=== PATIENT | female | born 1950 | race Caucasian/White ===

== ENCOUNTER 2018-06-25 21:00 | Emergency (ER) | payer MEDICARE, OTHER ==
[~2018-06-25] VITALS: Ht 152.4 cm; Wt 56.5 kg
[2018-06-25 21:14] VITALS: BP 118/65
[2018-06-25 21:47] LABS: BASOPHILS % (AUTO) 0 % (0-1); EOSINOPHILS # (AUTO) 0.07 x10^3/uL (0-0.4); EOSINOPHILS % (AUTO) 1 % (1-7); LYMPHOCYTES # (AUTO) 0.95 x10^3/uL (1-3.4); LYMPHOCYTES % (AUTO) 8 % (22-44); MD NO; MEAN CORPUSCULAR HEMOGLOBIN 31.3 pg (27.0-34.8); MEAN CORPUSCULAR HGB CONC 33.8 g/dL (32.4-35.8); MEAN CORPUSCULAR VOLUME 92.4 fL (80-100); MEAN PLATELET VOLUME 7.8 fL (7.4-10.4); MONOCYTES # (AUTO) 1.01 x10^3/uL (0.2-0.8); MONOCYTES % (AUTO) 8 % (2-9); NEUTROPHILS # (AUTO) 10.14 x10^3/uL (1.8-6.8); NEUTROPHILS % (AUTO) 83 % (42-75); PLATELET COUNT 199 x10^3/uL (130-400); RED BLOOD COUNT 4.02 x10^6/uL (3.82-5.3); RED CELL DISTRIBUTION WIDTH 14.4 % (9.6-15.2)
[2018-06-25 21:59] LABS: ALBUMIN 3.1 g/dL (3.4-5.0); ANION GAP 5 mmol/L (5-15); CALCIUM 9.2 mg/dL (8.5-10.1); CHLORIDE 108 mmol/L (98-107)
[2018-06-25 22:03] LABS: ALANINE AMINOTRANSFERASE 13 U/L (12-78); ALKALINE PHOSPHATASE 114 U/L (45-117); BILIRUBIN,TOTAL 0.9 mg/dL (0.2-1.0); CREATININE 0.95 mg/dL (0.55-1.02); TOTAL PROTEIN 7.2 g/dL (6.4-8.2)
--- NOTE | 2018-06-25 22:50 | NUR ---
PT HERE FOR ABD PAIN, PT TO DC AT THIS TIME. MD JUAN SAW AT BEDSIDE AND BASED ON LAB WORK PT IS OKAY TO DC HOME. VSS
== END 2018-06-25 23:06 | disposition home or self-care (01) ==
LOC: ED 23:00
DX: R19.7 Diarrhea, unspecified (principal); R11.10 Vomiting, unspecified; Z90.49 Acquired absence of other specified parts of digestive tract; Z88.6 Allergy status to analgesic agent
CPT/HCPCS: 36415; 80053; 83690; 85025; 99283

== ENCOUNTER 2019-04-16 13:25 | Outpatient (CLI) | payer MEDICARE | END 2019-04-16 23:59 | disposition home or self-care (01) | LOC: CFH 13:25 | DX: R92.8 Other abnormal and inconclusive findings on diagnostic imaging of breast (principal) | CPT/HCPCS: 76642; 77065 ==

== ENCOUNTER 2020-08-14 12:27 | Inpatient (IN) | payer MEDICARE ==
[~2020-08-14] VITALS: Ht 152.4 cm; Wt 64.4 kg
[2020-08-14 13:10] LABS: BASOPHILS % (AUTO) 1 % (0-1); EOSINOPHILS % (AUTO) 1 % (1-7); LYMPHOCYTES % (AUTO) 26 % (22-44); MEAN CORPUSCULAR HEMOGLOBIN 32.1 pg (27.0-34.8); MEAN CORPUSCULAR HGB CONC 34.5 g/dL (32.4-35.8); MEAN PLATELET VOLUME 8.2 fL (7.4-10.4); MONOCYTES % (AUTO) 8 % (2-9); NEUTROPHILS % (AUTO) 64 % (42-75); PLATELET COUNT 216 x10^3/uL (130-400); RED BLOOD COUNT 4.24 x10^6/uL (3.82-5.3); RED CELL DISTRIBUTION WIDTH 14.3 % (9.6-15.2)
[2020-08-14 13:15] LABS: MD NO
[2020-08-14 13:20] LABS: ALANINE AMINOTRANSFERASE 19 U/L (12-78); ALBUMIN 3.5 g/dL (3.4-5.0); ANION GAP 6 mmol/L (5-15); CALCIUM 9.5 mg/dL (8.5-10.1); CHLORIDE 105 mmol/L (98-107); CREATININE 1.38 mg/dL (0.55-1.02)
[2020-08-14 13:27] LABS: ALKALINE PHOSPHATASE 140 U/L (45-117); BILIRUBIN,TOTAL 0.7 mg/dL (0.2-1.0)
--- NOTE | 2020-08-14 14:19 | NUR ---
INDUSTRIAL MECHANIC: PT TO ROOM FROM LOBBY
--- NOTE | 2020-08-14 14:43 | NUR ---
RADIOLOGY TO LOOK INTO XRAY RESULTS.
--- NOTE | 2020-08-14 14:52 | NUR ---
ERMD AT BEDSIDE FOR ASSESSMENT.
[2020-08-14] MEDS ORDERED: CEFAZOLIN PMX 1GM/50ML 50 ML IV SCH (15:03)
[2020-08-14] MEDS ORDERED: LIDOCAINE-MPF 1%, 5ML ONE ×2 (15:06→16:57)
[2020-08-14] MEDS ORDERED: LIDOCAINE-MPF 1%, 5ML INFIL ONE ×2 (15:30→17:00)
--- NOTE | 2020-08-14 15:30 | NUR ---
PIV PLACED BY MAINTENANCE OPERATOR, ONE SET BLOOD CX. DIRECTOR CAMP AT BEDSIDE FOR SECOND SET. ERPA AT BEDSIDE FOR I&D. IV ABX TO START AFTER WOUND CX COLLECTED BY ERPA.
--- NOTE | 2020-08-14 15:46 | NUR ---
WOUND CX COLLECTED BY TONI AND TAKEN TO LAB.
[2020-08-14] MEDS ORDERED: CEFAZOLIN PMX 1GM/50ML 50 ML ONE (15:55)
--- NOTE | 2020-08-14 16:05 | NUR ---
IV ABX STARTED PER JUN. 2 SETS BLOOD CX AND WOUND CX COLLECTED PRIOR TO ADMIN. PT RESTING COMFORTABLY ON [facility].
--- NOTE | 2020-08-14 16:10 | NUR ---
PER ERMD, MARELY SANTIAGO WANTS ABX STOPPED AT THIS TIME. ABOUT HALF WAS INFUSED PRIOR TO STOPPING.
--- NOTE | 2020-08-14 17:14 | NUR ---
CONSET SIGNED FOR ARTHROCENTESIS, ERPA AT BED FOR PROCEDURE.
--- NOTE | 2020-08-14 17:46 | NUR ---
BREAK RN: ABX INTERRUPTED BY . RESTARTED AFTER FLUSHING IV. DISCUSSED WITH PT SHE HAS A ROOM UPSTAIRS, PT STATES "I'M NOT STAYING. I HAVE ANIMALS. I DIDNT THINK I WOULD BE HERE THIS LONG" DISCUSSED WITH DR BEASLEY.
--- NOTE | 2020-08-14 17:52 | NUR ---
DR BEASLEY AT BEDSIDE TO TALK TO PT.
--- NOTE | 2020-08-14 18:09 | NUR ---
REPORT TO MARLON BENITEZ.
--- NOTE | 2020-08-14 18:16 | NUR ---
PT AGREES TO STAY. ERMD NOTIFIED.
--- NOTE | 2020-08-14 18:26 | NUR ---
REPORT GIVEN TO SNEHA BENITEZ. PT RTG TO ROOM [id number]
[2020-08-14] MEDS ORDERED: DOCUSATE 100 MG CAPSULE PO PRN (19:30)
[2020-08-14] MEDS ORDERED: GABAPENTIN 100 MG CAPSULE PO PRN (19:30)
[2020-08-14] MEDS ORDERED: MELATONIN 5 MG TABLET PO PRN (19:30)
[2020-08-14] MEDS ORDERED: LIDODERM 5% PATCH TD PRN (19:30)
[2020-08-14] MEDS ORDERED: ACETAMINOPHEN 325 MG TABLET PO PRN (19:30)
[2020-08-14 19:59] VITALS: BP 132/68
[2020-08-14] MEDS ORDERED: LIDODERM REMOVE PATCH NOTE XX PRN (20:00)
[2020-08-14] MEDS ORDERED: GLYB1TAB14 PO (22:52)
[2020-08-14] MEDS ORDERED: ATOR-2 PO (22:58)
[2020-08-14] MEDS ORDERED: HYDR12.517 PO (22:58)
[2020-08-14] MEDS ORDERED: LISI40TA9 PO (22:58)
[2020-08-14] MEDS ORDERED: METO25TA91 PO (22:58)
[2020-08-14] MEDS ORDERED: ASPI-963 PO (22:58)
[2020-08-14] MEDS ORDERED: AMLO-211 PO (22:58)
[2020-08-15 00:13] VITALS: BP 120/70
[2020-08-15] MEDS: CEFAZOLIN PMX 1GM/50ML 50 ML IV SCH ×2 (00:22→08:16)
[2020-08-15 05:04] LABS: BASOPHILS % (AUTO) 0 % (0-1); EOSINOPHILS % (AUTO) 2 % (1-7); LYMPHOCYTES % (AUTO) 24 % (22-44); MEAN CORPUSCULAR HGB CONC 34.4 g/dL (32.4-35.8); MEAN PLATELET VOLUME 8.1 fL (7.4-10.4); MONOCYTES % (AUTO) 8 % (2-9); NEUTROPHILS % (AUTO) 66 % (42-75); PLATELET COUNT 186 x10^3/uL (130-400); RED BLOOD COUNT 3.97 x10^6/uL (3.82-5.3); RED CELL DISTRIBUTION WIDTH 14.3 % (9.6-15.2)
[2020-08-15 05:05] LABS: MD NO
[2020-08-15 05:15] LABS: ANION GAP 6 mmol/L (5-15); CALCIUM 9.2 mg/dL (8.5-10.1); CHLORIDE 107 mmol/L (98-107)
[2020-08-15 07:22] VITALS: BP 120/79
[2020-08-15] MEDS ORDERED: AMOX1TAB64 PO (12:05)
[2020-08-15 13:51] VITALS: BP 126/64
== END 2020-08-15 17:12 | disposition home or self-care (01) | DRG 558 ==
LOC: ED 14:35 → EDIP 17:26 → 3N 18:00
PROVIDERS: ADMIT Hospitalist; ATTEND Family Medicine
PROC: 0S9D3ZZ Drainage of Left Knee Joint, Percutaneous Approach (ICD-10-PCS; principal; 2020-08-14)
PROC: 0Y9G0ZZ Drainage of Left Knee Region, Open Approach (ICD-10-PCS; 2020-08-14)
DX: M70.42 Prepatellar bursitis, left knee (principal); L02.416 Cutaneous abscess of left lower limb; E11.9 Type 2 diabetes mellitus without complications; E78.5 Hyperlipidemia, unspecified; M17.12 Unilateral primary osteoarthritis, left knee; I10 Essential (primary) hypertension; Z90.49 Acquired absence of other specified parts of digestive tract; Z88.6 Allergy status to analgesic agent
CPT/HCPCS: 20610; 36415; 80048; 80053; 83605; 85025; 85651; 85810; 86140; 87040; 87070; 87205; 89050; 89060; 96365; 96366; 99285; G0378; J0690

== ENCOUNTER → 2020-08-21 | Outpatient (CLI) | payer MEDICARE ==
[~2020-08-21] MED LIST: AMLO-211 PO; AMOX1TAB64 PO; ASPI-963 PO; ATOR-2 PO; GLYB1TAB14 PO; HYDR12.517 PO; LISI40TA9 PO; METO25TA91 PO
== END | disposition home or self-care (01) ==
LOC: WOUND 12:46
PROVIDERS: ATTEND Internal Medicine
DX: T81.89XA Other complications of procedures, not elsewhere classified, initial encounter (principal); E11.628 Type 2 diabetes mellitus with other skin complications; M70.42 Prepatellar bursitis, left knee; E78.5 Hyperlipidemia, unspecified; M81.0 Age-related osteoporosis without current pathological fracture; I10 Essential (primary) hypertension; J45.909 Unspecified asthma, uncomplicated; M17.12 Unilateral primary osteoarthritis, left knee; Z87.891 Personal history of nicotine dependence; Z79.82 Long term (current) use of aspirin; Z79.899 Other long term (current) drug therapy; Z79.84 Long term (current) use of oral hypoglycemic drugs; Z90.49 Acquired absence of other specified parts of digestive tract; Z90.89 Acquired absence of other organs; Y83.8 Other surgical procedures as the cause of abnormal reaction of the patient, or of later complication, without mention of misadventure at the time of the procedure; Y92.238 Other place in hospital as the place of occurrence of the external cause
CPT/HCPCS: 97597; G0463

== ENCOUNTER → 2020-08-28 | Outpatient (CLI) | payer MEDICARE | END | disposition home or self-care (01) | LOC: WOUND 10:30 | PROVIDERS: ATTEND Internal Medicine | DX: M70.42 Prepatellar bursitis, left knee (principal); E11.628 Type 2 diabetes mellitus with other skin complications; E78.5 Hyperlipidemia, unspecified; I10 Essential (primary) hypertension; M81.0 Age-related osteoporosis without current pathological fracture; J45.909 Unspecified asthma, uncomplicated; M19.90 Unspecified osteoarthritis, unspecified site; Z87.891 Personal history of nicotine dependence; Z79.899 Other long term (current) drug therapy; Z90.89 Acquired absence of other organs; Z90.49 Acquired absence of other specified parts of digestive tract; Z79.82 Long term (current) use of aspirin; Z79.84 Long term (current) use of oral hypoglycemic drugs | CPT/HCPCS: G0463 ==